=== PATIENT | male | born 1960 | race Caucasian/White ===

== ENCOUNTER 2016-05-16 13:02 | Day surgery (SDC) | payer BC ==
[~2016-05-16] VITALS: Ht 182.9 cm; Wt 124.0 kg
[2016-05-16] VITALS (16 sets, daily range): BP systolic 113–166; BP diastolic 56–95; PULSE 66–100; RESP 10–22; Ht 182.9 cm; Wt 124.0 kg
[~2016-05-16 13:02] MED LIST: DEXAMETHASONE 4 MG/ML 1 ML INJ IV SCH
[2016-05-16] MEDS ORDERED: ATEN50TA PO (13:43)
[2016-05-16] MEDS ORDERED: ASPI-664 PO (13:43)
[2016-05-16] MEDS ORDERED: LISI30TA47 PO (13:44)
[2016-05-16] MEDS ORDERED: ATOR10TA65 PO (13:44)
[2016-05-16] MEDS ORDERED: METF1000 PO (13:45)
--- NOTE | 2016-05-16 17:05 | RADRPT ---
PROCEDURE: XR Chest. CLINICAL INDICATION: Preop chest x-ray for nasal septum surgery. TECHNIQUE: Single frontal view of the chest was obtained COMPARISON: No. FINDINGS: The soft tissues are normal. The bony elements are normal. The heart, left side aorta, cardiomedias tinal silhouette, pulmonary vasculature and hilar structures are normal. The lungs are clear. The co stophrenic angles are normal. There is a 9 mm nodular density in the right upper lobe which may be t he result of a granuloma. A CT scan of the chest and TB skin testing should be considered for [facility] evaluation. IMPRESSION: 1. There is no evidence of active cardiopulmonary disease. 2. There is a 9 mm nodular density which may be the result of a calcified granuloma in the right up per lobe. 3. Mild elevation of the right diaphragm. RPTAT:AAJJ Physician An Date Time Electronically viewed and signed by Physician An on 05/16/2016 17:04 /
--- NOTE | 2016-05-16 17:08 | HPN ---
Date/Time of Note Date/Time of Note DATE: 05/16/16 TIME: 17:08 Interval H&P Admission Note Pt. seen H&P reviewed: No system changes ARTIE STEPHEN MD May 16, 2016 17:08
--- NOTE | 2016-05-16 17:42 | RADRPT ---
PROCEDURE: CT Sinuses. CLINICAL INDICATION: Assess for nasal deviation. TECHNIQUE: A CT of the sinuses was performed on a high-resolution multichannel CT scanner [employer] g direct coronal images. Sagittal and axial reformatted images were made. The CTDIvol is 49.9 mGy and the DLP is 898.36 mGycm. One or more of the following dose reduction techniques were used: - Automated exposure control. - Adjustment of the mA and/or kV according to patient size. Use of iterative reconstruction technique. COMPARISON: No. FINDINGS: There is mucosal thickening of the left maxillary sinus. There is minimal mucosal thickening in the right maxillary sinus. The ostiomeatal units are patent bilaterally. There is fluid in the right anterior and middle ethmoid air cells. There is minimal mucosal thickening in the anterior left eth moid air cells. The sphenoethmoidal recesses appear grossly patent on the reformatted images. The sphenoid sinuses are clear. There is mucosal thickening in the right frontal recess. There is some mucosal thickening in the left frontal recess. The frontal sinuses are clear. The nasal septum anahi ws slightly to the right. The nasal turbinates are normal. Prominent bilateral agger nasi cells are evident. The contours of the nasopharynx are normal. The globes and extraocular muscles are normal. The optic nerves are bilaterally symmetric. The mas toid air cells and internal auditory canals are normal. IMPRESSION: 1. There is mucosal thickening of the right and left maxillary sinuses. 2. There is mild deviation of the nasal septum to the right. 3. There is mucosal thickening and fluid in the anterior and middle right ethmoid air cells. RPTAT:AAJJ Physician An Date Time Electronically viewed and signed by Physician An on 05/16/2016 17:42 JUSTEN/
[2016-05-16] MEDS ORDERED: PROPOFOL 20 ML ONE (17:57)
[2016-05-16] MEDS ORDERED: LIDOCAINE 2% (SDV) 5 ML INJ ONE (17:57)
[2016-05-16] MEDS ORDERED: FENTAnyl 50 MCG/ML VIAL ONE (17:57)
[2016-05-16] MEDS ORDERED: SUCCINYLCHOLINE CHLORIDE 100 MG/5 ML SYG IV ONE (17:57)
[2016-05-16] MEDS ORDERED: MIDAZOLAM 1 MG/ML 2 ML INJ ONE (17:57)
[2016-05-16] MEDS ORDERED: METOCLOPRAMIDE 10 MG INJ ONE (18:25)
[2016-05-16] MEDS ORDERED: FAMOTIDINE 20 MG INJ ONE (18:25)
[2016-05-16] MEDS ORDERED: ONDANSETRON 4 MG INJ ONE (18:25)
[2016-05-16] MEDS ORDERED: LIDOCAINE 1%/EPI 30 ML INJ ONE (18:31)
[2016-05-16] MEDS ORDERED: COCAINE 4% 4 ML TOP ONE (18:32)
[2016-05-16] MEDS ORDERED: BACITRACIN/POLYMYXIN 28.35 GM OINT TOP ONE (18:33)
[2016-05-16] MEDS ORDERED: EPINEPHrine 1 MG/ML 30 ML INJ ONE (18:33)
[2016-05-16] MEDS ORDERED: SALINE 0.65% NAS 14.1 GM TUBE NASAL ONE (18:34)
[2016-05-16] MEDS ORDERED: GLYCOPYRROLATE 0.4 MG INJ ONE (18:38)
[2016-05-16] MEDS ORDERED: ROCURONIUM 50 MG INJ ONE (18:38)
[2016-05-16] MEDS ORDERED: NEOSTIGMINE 3 MG/3 ML SYRINGE ONE ×2 (18:38→19:15)
[2016-05-16] MEDS ORDERED: SODIUM CL BACTERIOSTATIC 30 ML INJ ONE (18:56)
[2016-05-16] MEDS ORDERED: HYDROmorphONE (0.2 MG/ML) 10ML SYG IV PRN (19:00)
[2016-05-16] MEDS ORDERED: MEPERIDINE 25 MG INJ IV PRN (19:00)
[2016-05-16] MEDS ORDERED: ONDANSETRON 4 MG INJ IV PRN (19:00)
[2016-05-16] MEDS ORDERED: PROCHLORPERAZINE 10 MG INJ IV PRN (19:00)
[2016-05-16] MEDS ORDERED: DIPHENHYDRAMINE 50 MG INJ IV PRN (19:00)
[2016-05-16] MEDS ORDERED: OXYCODONE/ACETAMINOPHEN (5/325) TAB PO PRN (19:00)
[2016-05-16] MEDS ORDERED: FENTAnyl 50 MCG/ML VIAL IV PRN (19:00)
[2016-05-16] MEDS ORDERED: DEXAMETHASONE 4 MG/ML 1 ML INJ ONE (19:06)
[2016-05-16] MEDS ORDERED: HYDROmorphONE 2 MG/ML SYG ONE (19:09)
--- NOTE | 2016-05-16 19:35 | OPR ---
Date/Time of Note Date/Time of Note DATE: 05/16/16 TIME: 19:30 Operative Report Procedure Date: May 16, 2016 Preoperative Diagnosis Chronic and recurrent sinusitis. Postoperative Diagnosis Same Operation Performed Bilateral image guided endoscopic frontal sinusotomies, total ethmoidectomies, sphenoid sinusotomies, and maxillary antrostomies. Surgeon: ARTIE STEPHEN MD Anesthesia: general Estimated Blood Loss: 0 - 10 ml's Complications: None Pt Condition Post Procedure: stable Disposition: PACU Indications Chronic and recurrent sinusitis. Operative Findings Mucosal thickening and osteitis throughout. Left delroy bullosa. Procedure Description Description of procedure:The patient was identified in the holding area. We had a discussion to confirm understanding of all indications risks benefits alternatives and postoperative care associated with the operation. The patient signed informed consent was taken to the operating room. The patient was laid supine on the operating room table and anesthesia was provided in the following manner: The face was draped in sterile fashion and the nose was packed with 4% cocaine pledgets. The [employer] image guidance system was installed and functioned appropriately during the case. 0 endoscopy was performed of all nasal turbinates and meati. This revealed the findings described above. The procedure began on the left side under endoscopic guidance. The microdebrider was used to resect the uncinate process in an inferior to superior fashion until the area of the frontal sinus outflow tract was reached. Frontal sinusotomy: A curved curet was used to remove the bony elements of the Ager Nasi cell. Next, with a 45 camera, the frontal sinus outflow tract was explored and any abnormal mucosa was resected. Care was taken not to cause too much mucosal disruption in this area in order to avoid scarring and stenosis. Frontal sinus balloon dilation was then performed for ten seconds and broken segments of the ager nasi cell were removed. The tract was patent without polyp or obstructive pathology. On the left side, the delroy bullosa was addressed by dissecting the lateral mucosa off the bone and resecting the bone sharply. The mucosa was preserved and returned to the middle turbinate. Maxillary antrostomy: Once the frontal sinus was addressed, the maxillary sinus ostium was identified and entered with the microdebrider. It was widened anteriorly and inferiorly to complete the maxillary antrostomy. No intrasinus mass or polyp was seen. Ethmoidectomy: Next, the zero degree endoscope was again used to visualize the middle meatus. Anterior and posterior ethmoid air cells were resected in an inferior to superior fashion sparing the lamina papyracea and the skull base. All excess mucosa and polypoid tissue were removed with an upbiting forcep. Sphenoid sinusotomy: The anterior face of the sphenoid sinus was identified with the zero degree endoscopy and entered inferiorly and medially with a seeker. The microdebrider was used to widen this inferomedially to complete the sphenoid sinusotomy. At this point, all bony fragments were removed and a large Nasopore was placed into the ethmoidectomy defect. The contralateral side was at this point addressed in the same sequence dictated above. Frontal sinusotomy, total ethmoidectomy, sphenoid sinusotomy and maxillary antrostomy proceeded in the exact same sequences as the contralateral side, with the following exceptions: No delroy bullosa resection on the right. At completion, this side was also packed with a Nasopore pack and bilateral hemostasis was ensured with a final nasal endoscopy. The patient was awakened, extubated and taken to the PACU in stable condition. Septoplasty was deferred as there was no need. Complications: None. ARTIE STEPHEN MD May 16, 2016 19:35
== END 2016-05-16 21:00 | disposition home or self-care (01) ==
LOC: SDS 13:02
PROVIDERS: ATTEND Otolaryngology
DX: J32.9 Chronic sinusitis, unspecified (principal); I10 Essential (primary) hypertension; E11.9 Type 2 diabetes mellitus without complications; E78.2 Mixed hyperlipidemia; G47.33 Obstructive sleep apnea (adult) (pediatric); Z68.37 Body mass index [BMI] 37.0-37.9, adult; J34.2 Deviated nasal septum; E66.01 Morbid (severe) obesity due to excess calories
CPT/HCPCS: 31255; 31256; 31276; 31287; 70486; 71010; 82962; J0171; J0330; J1100; J1170; J2175; J2250; J2405; J2710; J2765; J3010; Z7512; Z7610